=== PATIENT | male | born 1960 | race Caucasian/White ===

== ENCOUNTER 2019-06-12 19:48 | Emergency (ER) | payer BC ==
[~2019-06-12] VITALS: Ht 170.2 cm; Wt 85.7 kg
[2019-06-13 00:05] LABS: Source, Urine Catheter
[2019-06-13 00:07] LABS: Bilirubin, Urine Neg (Neg); Blood, Urine 2+ (Neg); Glucose Qualitative, Urine Neg (Neg); Ketones, Urine Neg (Neg); Leukocyte Esterase, Urine Neg (Neg); Nitrite, Urine Neg (Neg); Protein, Urine 2+ (Neg); Urobilinogen, Urine NORM (Normal)
[2019-06-13 00:08] LABS: Appearance, Urine Clear (Clear); Color, Urine Yellow (P-Yellow)
[2019-06-13 00:16] LABS: Amorphous Light (0-Heavy); Bacteria Few /hpf; Mucus Light (0-Heavy); Squamous Epithelial Cells Rare /hpf (Few); White Blood Cells, Urine Rare /hpf (0-5)
[2019-06-13] MEDS ORDERED: NEURONTIN300 MG PO (22:41)
== END 2019-06-13 01:30 | disposition home or self-care (01) ==
LOC: ER 19:48
PROVIDERS: Emergency Medicine
DX: N13.9 Obstructive and reflux uropathy, unspecified (principal); M54.32 Sciatica, left side
CPT/HCPCS: 51702; 51798; 81001; 99283-25

== ENCOUNTER 2019-06-13 21:48 | Emergency (ER) | payer BC ==
[~2019-06-13] VITALS: Ht 170.2 cm; Wt 85.7 kg
[2019-06-13] MEDS ORDERED: NEURONTIN300 MG PO (22:41)
== END 2019-06-13 23:22 | disposition home or self-care (01) ==
LOC: ER 21:48
DX: R33.9 Retention of urine, unspecified (principal)
CPT/HCPCS: 51702; 99282-25

== ENCOUNTER → 2019-06-13 | Outpatient (CLI) | payer BC ==
[~2019-06-13] MED LIST: NEURONTIN300 MG PO
[2019-06-13 19:40] LABS: Appearance, Urine Hazy (Clear); Bilirubin, Urine Neg (Neg); Blood, Urine 5+ (Neg); Color, Urine Red (P-Yellow); Glucose Qualitative, Urine Neg (Neg); Ketones, Urine Neg (Neg); Leukocyte Esterase, Urine 2+ (Neg); Nitrite, Urine Neg (Neg); Protein, Urine 3+ (Neg); Specific Gravity, Urine 1.015 (1.003-1.022); Urobilinogen, Urine NORM (Normal)
[2019-06-13 20:00] LABS: Bacteria Few /hpf; Red Blood Cells, Urine TNTC /hpf (0-2); Squamous Epithelial Cells Rare /hpf (Few)
[2019-06-13 20:01] LABS: Amorphous Light (0-Heavy)
== END ==
LOC: LAB 17:58 → LAB SHORT 17:58
PROVIDERS: Nurse Practitioner Family
DX: R31.9 Hematuria, unspecified (principal)
CPT/HCPCS: 81001; 87086

== ENCOUNTER 2019-06-19 19:57 | Emergency (ER) | payer BC ==
[~2019-06-19] VITALS: Ht 170.2 cm; Wt 85.3 kg
[2019-06-19] MEDS ORDERED: LISI20 PO (20:15)
[2019-06-19] MEDS ORDERED: Flomax0.4 MG PO (23:04)
== END 2019-06-19 23:10 | disposition home or self-care (01) ==
LOC: ER 19:57
DX: R33.9 Retention of urine, unspecified (principal); Z79.899 Other long term (current) drug therapy; I10 Essential (primary) hypertension
CPT/HCPCS: 51702; 51798; 99283-25